=== PATIENT | female | born 1970 ===

== ENCOUNTER 2017-01-10 19:42 | Emergency (ER) | payer SELFPAY ==
[2017-01-10 19:43] VITALS: BMI 34.3
[2017-01-10 20:08] VITALS: PULSE 93; RESP 16; TEMP 98.4; O2SAT 100
--- NOTE | 2017-01-10 22:06 | ED PDOC ---
HPI: Eye Injury/Pain Time Seen by Provider: 01/10/17 20:27 Chief Complaint (Nursing): Eye Problem Chief Complaint (Provider): left eye pain, headache History Per: Patient, Services Account Manager History/Exam Limitations: no limitations Current Symptoms Are (Timing): Still Present Severity: Moderate Quality: Sharp Additional Complaint(s): 46yo female c.o left eye pain and eyelid swelling, headache x2 weeks. Now c/o mild blurry vision. Denies fever, pain on ROM of eye, other skin infections, contact lens use or trauma. Past Medical History Reviewed: Historical Data, Nursing Documentation, Vital Signs Vital Signs: Last Vital Signs Temp 98.4 F 01/10/17 20:02 Pulse 93 H 01/10/17 20:02 Resp 16 01/10/17 20:02 BP 140/111 H 01/10/17 20:02 Pulse Ox 100 01/10/17 20:02 - Medical History PMH: Diabetes, HTN, Hypercholesterolemia Denies: Chronic Kidney Disease - Surgical History Surgical History: Appendectomy, Cholecystectomy - Home Medications Home Medications: Ambulatory Orders Medication Instructions Recorded Acetaminophen [Pain Relief Extra 500 mg PO Q4 #30 tablet 06/30/16 Strength] Bacitracin [Bacitracin Opht OINT] 1 applic OD TID 7 Days 01/10/17 Clindamycin [Cleocin] 150 mg PO TID #15 cap 01/10/17 Polymyxin/Trimethoprim Sulfate 2 drop OS Q4 #1 bottle 01/10/17 [Polytrim Ophth Soln] - Allergies Allergies/Adverse Reactions: Allergies Allergy/AdvReac Type Severity Reaction Status Date / Time aspirin Allergy RASH Verified 01/10/17 20:02 Review of Systems Constitutional: Negative for: Fever, Chills Eyes: Positive for: Pain, Vision Change, Conjunctivae Inflammation, Eyelid Inflammation, Redness Cardiovascular: Negative for: Chest Pain, Palpitations Respiratory: Negative for: Cough, Shortness of Breath Skin: Negative for: Rash, Lesions Neurological: Negative for: Weakness, Numbness Physical Exam - Reviewed Nursing Documentation Reviewed: Yes Vital Signs Reviewed: Yes - Physical Exam Appears: Positive for: Well, Non-toxic, No Acute Distress Head Exam: Positive for: ATRAUMATIC, NORMAL INSPECTION, NORMOCEPHALIC Skin: Positive for: Normal Color, Warm, DRY Eye Exam: Positive for: EOMI, PERRL, Periorbital swelling (eyelids), Periorbital tenderness, Other (cornea quiet, no hyphema or hypopyon). Negative for: Conjunctival injection, Scleral icterus ENT: Positive for: Normal ENT Inspection Neck: Positive for: Normal, Painless ROM Cardiovascular/Chest: Positive for: Regular Rate, Rhythm Respiratory: Positive for: CNT, Normal Breath Sounds Gastrointestinal/Abdominal: Positive for: Bowel Sounds, Soft. Negative for: Tenderness Back: Positive for: Normal Inspection Extremity: Positive for: Normal ROM Neurologic/Psych: Positive for: Alert, Oriented. Negative for: Motor/Sensory Deficits - ECG O2 Sat by Pulse Oximetry: 100 Medical Decision Making Medical Decision Making: Clonidine ordered for HTN given elevated BP and headache. CT brain performed, normal brain per radiologist. Tetracaine 2 gtt to L eye w fluroscein stain- no uptake. Initiate eye drop Abx and oral Abx given length of symptoms. Followup ophtho. Disposition - Clinical Impression Clinical Impression: Blepharitis - Patient ED Disposition Is Patient to be Admitted: No Counseled Patient/Family Regarding: Studies Performed, Diagnosis, Need For Followup, Rx Given - Disposition Referrals: Darvin Schumacher MD [Staff Provider] - Disposition: Routine/Home Disposition Time: 21:30 Condition: STABLE Additional Instructions: Return to ER for any worse or new symptoms. See eye doctor for followup. Prescriptions: Bacitracin [Bacitracin Opht OINT] 1 applic OD TID 7 Days Clindamycin [Cleocin] 150 mg PO TID #15 cap Polymyxin/Trimethoprim Sulfate [Polytrim Ophth Soln] 2 drop OS Q4 #1 bottle Instructions: Blepharitis (ED), Periorbital Cellulitis in Adults (ED) Print Language: THAI
[2017-01-10 22:23] VITALS: BP 163/118
--- NOTE | 2017-01-11 09:29 | CT ---
PROCEDURE: CT HEAD WITHOUT CONTRAST. HISTORY: headache, L eye pain COMPARISON: None available. TECHNIQUE: Axial computed tomography images were obtained through the head/brain without intravenous contrast. Radiation dose: Total exam DLP = 823.94 mGy-cm. This CT exam was performed using one or more of the following dose reduction techniques: Automated exposure control, adjustment of the mA and/or kV according to patient size, and/or use of iterative reconstruction technique. FINDINGS: HEMORRHAGE: No intracranial hemorrhage. BRAIN: No mass effect or edema. No atrophy or chronic microvascular ischemic changes. VENTRICLES: Unremarkable. No hydrocephalus. CALVARIUM: Unremarkable. PARANASAL SINUSES: Unremarkable as visualized. No significant inflammatory changes. MASTOID AIR CELLS: Unremarkable as visualized. No inflammatory changes. OTHER FINDINGS: None. IMPRESSION: Normal CT of the Head.
== END 2017-01-10 22:36 | disposition home or self-care (01) ==
LOC: H.ER 19:42
DX: R51 Headache (principal); H01.006 Unspecified blepharitis left eye, unspecified eyelid